=== PATIENT | female | born 1945 | race Caucasian/White ===

== ENCOUNTER 2017-01-02 05:58 | Inpatient (IN) | payer OTHER, MEDICARE ==
[2017-01-02] MEDS ORDERED: ALBUTEROL SO4 2.5/IPRATROPIUM 0.5 INH SOL 3 ML VIAL.NEB. NEB ONE ×4 (06:30→10:10)
--- NOTE | 2017-01-02 06:32 | PDOC ---
History of Present Illness - General Chief Complaint: Respiratory Stated Complaint: COUGH, RESPIRATORY Time Seen by Provider: 01/02/17 06:21 - History of Present Illness Initial Comments: 01/02/17 06:27 CHIEF COMPLAINT: SOB, cough HISTORY OF PRESENT ILLNESS: 71 yo F with hx of HTN, 2 cardiac stents (on Plavix ) sent to ED by PCP with SOB x 2 weeks. Patient reports she has had this "exactly" before and was previously "hospitalized for bronchial pneumonia" after failing outpatient treatment. Patient just completed a course of Levaquin and Medrol dose pack without relief. She has also been using her albuterol inhalers without relief. Her PCP is Dr. Luis Velasquez. She denies any fever but states she does feel chills sometimes. Denies nausea, vomiting diarrhea . No recent travel or sick contacts. PAST MEDICAL HISTORY: Denies past medical history FAMILY HISTORY: Denies SOCIAL HISTORY:Denies tobacco, alcohol, illicit drug use. SURGICAL HISTORY: Denies ALLERGIES: No known drug allergies REVIEW OF SYSTEMS General/Constitutional: "Some chills." Denies fever. Denies weakness, weight change. HEENT: Denies change in vision. Denies ear pain or discharge. Denies sore throat. Cardiovascular: Denies chest pain. Respiratory: Cough, wheezing, SOB x 2 weeks. Denies hemoptysis. Gastrointestinal: Denies nausea, vomiting, diarrhea or constipation. Denies rectal bleeding. Genitourinary: Denies dysuria, frequency, or change in urination. Musculoskeletal: Denies joint or muscle swelling or pain. Denies neck or back pain. Skin and breasts: Denies rash or easy bruising. PHYSICAL EXAM General Appearance: Well-appearing, appropriately dressed. No apparent distress , no intoxication. HEENT: EOMI, PERRLA, normal ENT inspection, normal voice, TMs normal, pharynx normal. No conjunctival pallor. No photophobia, scleral icterus. Neck: Supple. Trachea midline. No tenderness, rigidity, carotid bruit, stridor , lymphadenopathy, or thyromegaly. Respiratory/Chest: Bl expiratory wheezing. No shortness of breath, chest tenderness, respiratory distress, accessory muscle use. No crackles, rales, rhonchi, stridor, wheezing, dullness Cardiovascular: RRR. S1, S2. Gastrointestinal/Abdominal: Normal bowel sounds. Abdomen soft, non-distended. No tenderness or rebound tenderness. No organomegaly, pulsatile mass, guarding , hernia, hepatomegaly, splenomegaly. Lymphatic: No adenopathy, tenderness. Musculoskeletal/Extremities: Normal inspection. FROM of all extremities, normal capillary refill. Pelvis Stable. No CVA tenderness. No tenderness to extremities, pedal edema, swelling, erythema or deformity. Integumentary: Appropriate color, dry, warm. No cyanosis, erythema, jaundice or rash Neurologic: business development analyst II-XII intact. Fully oriented, alert. Appropriate mood/affect. Motor strength 5/5. No appreciable EOM palsy, facial droop or sensory deficit. Past History - Past Medical History Allergies/Adverse Reactions: Allergies Allergy/AdvReac Type Severity Reaction Status Date / Time lactose Allergy Verified 01/02/17 06:24 Penicillins Allergy Verified 01/02/17 06:24 Home Medications: Ambulatory Orders Aspirin [Aspir 81] 81 mg PO BID 10/18/11 Rosuvastatin [Crestor -] 40 mg PO HS 10/18/11 Levothyroxine [Synthroid -] 75 mcg PO DAILY 12/13/11 Lisinopril [Prinivil -] 2.5 mg PO DAILY 06/02/15 Pantoprazole Sodium [Protonix -] 40 mg PO DAILY 06/02/15 Clopidogrel Bisulfate [Plavix -] 75 mg PO DAILY #0 06/03/15 Anemia: No Asthma: No Cancer: Yes (RIGHT BREAST MASTECTOMY, THYROID CA) Cardiac Disorders: Yes (MT, METAL STENT, COATED STENT) CVA: No COPD: No CHF: No Dementia: No Diabetes: No GI Disorders: Yes (PETERSON'S ESOPHAGUS,ABLATION 2X) Disorders: No HTN: No Hypercholesterolemia: Yes Liver Disease: No Seizures: No Thyroid Disease: Yes (LEFT LOBE REMOVED, RIGHT LOBE RADIATION) - Surgical History Abdominal Surgery: No Appendectomy: No Cardiac Surgery: Yes Cholecystectomy: Yes Lung Surgery: No Neurologic Surgery: No Orthopedic Surgery: Yes (LEFT TOTAL KNEE REPLACEMENT) - Psycho/Social/Smoking Cessation Hx Suicidal Ideation: No Smoking History: Never smoked Have you smoked in the past 12 months: No If you are a former smoker, when did you quit?: 7YEARS AGO Information on smoking cessation initiated: No Hx Alcohol Use: No Drug/Substance Use Hx: No Substance Use Type: None Hx Substance Use Treatment: No *Physical Exam - Vital Signs Last Vital Signs Temp Pulse Resp BP Pulse Ox 98.5 F 62 14 135/83 95 01/02/17 06:16 01/02/17 06:16 01/02/17 06:16 01/02/17 06:16 01/02/17 06:16 ED Treatment Course - LABORATORY CBC & Chemistry Diagram: 01/03/17 06:10 01/03/17 06:10 Medical Decision Making - Medical Decision Making 01/02/17 06:34 71 yo F with hx of HTN, 2 cardiac stents (on Plavix) sent to ED by PCP with SOB x 2 weeks. -CBC, CMP, card profile, BNP -EKG -CXR Case discussed in detail with oncoming emergency provider including history, physical exam and ancillary studies. In brief, this patient is being seen in the ED for a chief complaint of: SOB I have completed the initial assessment interview note and have ordered the following labs: CBC, CMP, card profile, BNP I have reviewed the following results: Pending results: Please call the PCP: Ron Plan for disposition as follows: admit Oncoming ALVERTO [place] has assumed care for the patient and will complete the evaluation and treatment. *DC/Admit/Observation/Transfer Diagnosis at time of Disposition: Wheezing, Failure of outpatient treatment, Cough - Referrals
[2017-01-02 06:37] VITALS: BMI 25.9
[2017-01-02] MEDS ORDERED: methylPREDNISolone NA SUCC 125 MG/2 ML VIAL IVPB ONE (06:56)
[2017-01-02 07:05] LABS: BASOPHIL 0.5 % (0-2.0); EOSINOPHIL 7.1 % (0-4.5); MCH 31.5 pg (25.7-33.7); MCHC 34.3 g/dl (32.0-36.0); MEAN CELL VOLUME 91.9 fl (80-96); MEAN PLT VOLUME 8.2 fl (7.5-11.1); NEUTROPHILS 64.5 % (42.8-82.8); PLATELET COUNT 247 K/MM3 (134-434); RDW 14.5 % (11.6-15.6); WHITE BLOOD COUNT 7.8 K/mm3 (4.0-10.0)
--- NOTE | 2017-01-02 07:21 | PDOC ---
*Physical Exam - Vital Signs Last Vital Signs Temp Pulse Resp BP Pulse Ox 98.5 F 62 14 135/83 98 01/02/17 06:16 01/02/17 06:16 01/02/17 06:16 01/02/17 06:16 01/02/17 06:18 ED Treatment Course - LABORATORY CBC & Chemistry Diagram: 01/02/17 06:56 01/02/17 06:56 - Medications Given in the ED: ED Medications Discontinued Medications Generic Name Dose Route Start Last Admin Trade Name Everardo PRN Reason Stop Dose Admin Albuterol/Ipratropium 1 amp 01/02/17 06:30 01/02/17 06:38 Duoneb - NEB 01/02/17 06:31 1 amp ONCE ONE Administration Methylprednisolone Sodium Succinate 125 mg 01/02/17 06:56 01/02/17 06:59 Solu-Medrol - IVPB 01/02/17 06:57 125 mg ONCE ONE Administration Medical Decision Making - Medical Decision Making 01/02/17 07:[address] in by Dr[address] Luis Velasquez for admission secondary to unresolved coughing and wheezing despite being on Levaquin. Patient was given steroids here in the ER including duo nebs. Patient awaiting chest x-ray. Admission will be placed once x-ray is reviewed. 01/02/17 09:14 Chest xray -. Pt with continual coughing and intermittent wheezing. pt ordered for robitussin ac and duoneb. Case discussed with Dr. Christiano Velasquez and states admitted to [facility] inpatient. *DC/Admit/Observation/Transfer Diagnosis at time of Disposition: Wheezing, Failure of outpatient treatment, Cough - Discharge Dispostion Admit: Yes - Referrals Referrals: Luis Velasquez MD [Primary Care Provider] - - Patient Instructions - Post Discharge Activity
[2017-01-02 07:39] LABS: INR 0.99 (0.82-1.09); PROTHROMBIN TIME (PATIENT) 10.9 SEC (9.98-11.88)
[2017-01-02 07:51] LABS: ALBUMIN 3.3 g/dl (3.4-5.0); ALK PHOS 72 U/L (45-117); ANION GAP 8 (8-16); BILIRUBIN,TOTAL 0.3 mg/dL (0.2-1.0); CALCIUM 8.8 mg/dL (8.5-10.1); CO2 27 mmol/L (21-32); CREATININE 0.9 mg/dL (0.55-1.02); GLUCOSE,RANDOM 85 mg/dL (74-106); SGOT/AST 18 U/L (15-37); SGPT/ALT 16 U/L (12-78); TOT PROT 5.9 g/dl (6.4-8.2)
[2017-01-02] MEDS ORDERED: guaiFENesin/CODEINE 10 ML UNIT-DOSE CUPS PO ONE (08:58)
[2017-01-02] MEDS ORDERED: guaiFENesin/D-METHORPHAN HB 10 ML UNIT-DOSE CUPS ONE (09:00)
[2017-01-02 11:01] LABS: TROPONIN I < 0.02 ng/ml (0.00-0.05)
[2017-01-02] MEDS ORDERED: ACETAMINOPHEN 325 MG TABLET (FP) PO PRN (12:30)
--- NOTE | 2017-01-02 12:34 | HP ---
Admitting History and Physical - Primary Care Physician PCP: Luis Velasquez - Admission Chief Complaint: cough/sob/ wheezing History of Present Illness: 71 yo F with hx of HTN, 2 cardiac stents (on Plavix) sent to ED by PCP with SOB x 2 weeks. Patient reports she has had this "exactly" before and was previously "hospitalized for bronchial pneumonia" after failing outpatient treatment. Patient just completed a course of Levaquin and Medrol dose pack without relief. She has also been using her albuterol inhalers without relief. She denies any fever but states she does feel chills sometimes. Denies nausea , vomiting diarrhea . No recent travel or sick contacts. pt recently finished out pt treatment with abx/ prednisone pt found in [facility] [place] Being admitted to floor chart reviewed case discussed with er physician earlier pt seen in er. coughing/ wheezing- better with steroids. denies cp. no abd pain. no headche/ dizziness. denies u/b trouble History Source: Patient Limitations to Obtaining History: No Limitations - Past Medical History Cardiovascular: Yes: CAD, CHF, HTN, Hyperlipdemia, [place] Pulmonary: Yes: COPD, Pneumonia Gastrointestinal: Yes: GERD Endocrine: Yes: Hypothyroidism - Past Surgical History Past Surgical History: Yes: Joint Replacement, Mastectomy, Stent - Smoking History Smoking history: Former smoker Have you smoked in the past 12 months: No If you are a former smoker, when did you quit?: 7YEARS AGO - Alcohol/Substance Use Hx Alcohol Use: No - Social History Usual Living Arrangement: Yes: Alone History of Recent Travel: No Home Medications - Allergies Allergies/Adverse Reactions: Allergies Allergy/AdvReac Type Severity Reaction Status Date / Time lactose Allergy Verified 01/02/17 06:24 Penicillins Allergy Verified 01/02/17 06:24 - Home Medications Home Medications: Ambulatory Orders Aspirin [Aspir 81] 81 mg PO BID 10/18/11 Rosuvastatin [Crestor -] 40 mg PO HS 10/18/11 Levothyroxine [Synthroid -] 75 mcg PO SUWETHFRSA 12/13/11 Lisinopril [Prinivil -] 2.5 mg PO DAILY 06/02/15 Pantoprazole Sodium [Protonix -] 40 mg PO DAILY 06/02/15 Clopidogrel Bisulfate [Plavix -] 75 mg PO DAILY #0 06/03/15 Family Disease History - Family Disease History Family History: Unremarkable Review of Systems Unable to obtain ROS, reason: see [facility] Physical Examination Vital Signs: Vital Signs Temperature 98.5 F 01/02/17 06:16 Pulse Rate 73 01/02/17 11:35 Respiratory Rate 14 01/02/17 11:35 Blood Pressure 112/71 01/02/17 11:35 O2 Sat by Pulse Oximetry (%) 94 L 01/02/17 11:35 Constitutional: Yes: No Distress, Calm Eyes: Yes: Conjunctiva Clear HENT: Yes: WNL Neck: Yes: Supple Cardiovascular: Yes: Regular Rate and Rhythm Respiratory: Yes: Wheezes Gastrointestinal: Yes: Normal Bowel Sounds, Soft Edema: No Neurological: Yes: Alert Psychiatric: Yes: Alert Imaging - Results Chest X-ray: Report Reviewed Problem List - Problems (1) COPD exacerbation Assessment/Plan: iv steroids nebulizer treatment Code(s): J44.1 - CHRONIC OBSTRUCTIVE PULMONARY DISEASE W (ACUTE) EXACERBATION (2) Failure of outpatient treatment Code(s): Z78.9 - OTHER SPECIFIED HEALTH STATUS (3) Wheezing Code(s): R06.2 - WHEEZING (4) CAD (coronary artery disease) Assessment/Plan: no active issues Code(s): I25.10 - ATHSCL HEART DISEASE OF [place] CORONARY ARTERY W/O ANG PCTRS Qualifiers: Coronary Disease-Associated Artery/Lesion type: [place] artery [place] vs. transplanted heart: [place] heart Associated angina: without angina Qualified Code(s): I25.10 - Atherosclerotic heart disease of [place] coronary artery without angina pectoris (5) History of percutaneous angioplasty Assessment/Plan: no active issues continue present care Code(s): Z98.61 - CORONARY ANGIOPLASTY STATUS (6) Hypercholesterolemia Code(s): E78.0 - PURE HYPERCHOLESTEROLEMIA * DO NOT USE * (7) Hypertension Assessment/Plan: monitor Code(s): I10 - ESSENTIAL (PRIMARY) HYPERTENSION Qualifiers: Hypertension type: essential hypertension Qualified Code(s): I10 - Essential (primary) hypertension (8) Hypothyroid Assessment/Plan: on synthroid Code(s): E03.9 - HYPOTHYROIDISM, UNSPECIFIED
[2017-01-02] MEDS ORDERED: ENOXAPARIN NA (PORCINE) 40 MG/0.4 ML DISP.SYRIN SQ ONE (13:22)
[2017-01-02] MEDS ORDERED: CLOPIDOGREL BISULFATE 75 MG TABLET (FP) ONE (13:22)
[2017-01-02] MEDS: ENOXAPARIN NA (PORCINE) 40 MG/0.4 ML DISP.SYRIN SQ SCH (13:31)
[2017-01-02] MEDS: CLOPIDOGREL BISULFATE 75 MG TABLET (FP) PO SCH (13:31)
[2017-01-02] MEDS: methylPREDNISolone NA SUCC 125 MG/2 ML VIAL IVPB SCH ×2 (14:53→21:03)
[2017-01-02] MEDS: ALBUTEROL SO4 0.083% IH SOL 2.5 MG/3 ML VIAL.NEB. NEB PRN ×3 (17:30→22:57)
[2017-01-02] MEDS ORDERED: PT OWN MED DRAWER 7, Y5N ONE ×2 (21:00→22:01)
[2017-01-02] MEDS: ASPIRIN COATED 81 MG TABLET.EC PO SCH (21:45)
[2017-01-02] MEDS ORDERED: ROSUVASTATIN CA 40 MG TABLET PO SCH (22:00)
[2017-01-03] MEDS: methylPREDNISolone NA SUCC 125 MG/2 ML VIAL IVPB SCH ×4 (03:21→21:42)
[2017-01-03] MEDS: ALBUTEROL SO4 0.083% IH SOL 2.5 MG/3 ML VIAL.NEB. NEB PRN (07:07)
[2017-01-03 08:05] LABS: BASOPHIL 0.1 % (0-2.0); EOSINOPHIL 0.1 % (0-4.5); MCH 31.1 pg (25.7-33.7); MCHC 33.8 g/dl (32.0-36.0); MEAN CELL VOLUME 92.1 fl (80-96); MEAN PLT VOLUME 8.6 fl (7.5-11.1); NEUTROPHILS 92.1 % (42.8-82.8); PLATELET COUNT 273 K/MM3 (134-434); RDW 14.4 % (11.6-15.6)
[2017-01-03 08:27] LABS: ALBUMIN 3.2 g/dl (3.4-5.0); ANION GAP 9 (8-16); CALCIUM 8.9 mg/dL (8.5-10.1); CO2 24 mmol/L (21-32); GLUCOSE,RANDOM 130 mg/dL (74-106); SGOT/AST 17 U/L (15-37); SGPT/ALT 17 U/L (12-78)
[2017-01-03 08:38] LABS: ALK PHOS 60 U/L (45-117); BILIRUBIN,TOTAL 0.4 mg/dL (0.2-1.0); THYROID STIMULATING HORMONE 0.22 uIU/ml (0.358-3.74); TOT PROT 6.1 g/dl (6.4-8.2)
[2017-01-03] MEDS ORDERED: PT OWN MED DRAWER 7, Y5N ONE (09:01)
[2017-01-03] MEDS: ASPIRIN COATED 81 MG TABLET.EC PO SCH ×2 (09:10→21:44)
[2017-01-03] MEDS: CLOPIDOGREL BISULFATE 75 MG TABLET (FP) PO SCH (09:11)
[2017-01-03] MEDS: PANTOPRAZOLE 40 MG TABLET (FP) PO SCH (09:12)
[2017-01-03] MEDS: LISINOPRIL 5 MG TABLET (FP) PO SCH (09:12)
[2017-01-03] MEDS: ENOXAPARIN NA (PORCINE) 40 MG/0.4 ML DISP.SYRIN SQ SCH (09:14)
--- NOTE | 2017-01-03 09:45 | PN ---
Progress Note (short form) - Note Progress Note: pt seen/ examined. little better coughing denies chest pain. Vital Signs Temp 99 F 01/03/17 06:00 Pulse 72 01/03/17 06:00 Resp 20 01/03/17 06:00 BP 102/56 01/03/17 06:00 Pulse Ox 94 L 01/02/17 22:00 Intake & Output 01/02/17 01/02/17 01/03/17 11:59 23:59 11:59 Intake Total 100 350 Balance 100 350 Weight 142 lb Intake: IVPB 100 50 Oral 300 Other: Voiding Method Toilet Toilet # Unmeasured Voids Void 3 Height 5 ft 2 in Body Mass Index (BMI) 25.9 Weight Measurement Method Stated by Patient Weight Measurement Method Standing Scale Active Medications Acetaminophen (Tylenol -) 650 mg PO Q4H PRN PRN Reason: FEVER OR PAIN Albuterol/Ipratropium (Duoneb -) 1 amp NEB Q6H [facility] Aspirin (Ecotrin -) 81 mg PO BID [facility] Last Admin: 01/03/17 09:10 Dose: 81 mg Clopidogrel Bisulfate (Plavix -) 75 mg PO DAILY [facility] Last Admin: 01/03/17 09:11 Dose: 75 mg Enoxaparin Sodium (Lovenox -) 40 mg SQ DAILY [facility] Last Admin: 01/03/17 09:14 Dose: 40 mg Guaifenesin/Codeine Phosphate (Robitussin Ac -) 10 ml PO Q8H PRN PRN Reason: COUGH Levothyroxine Sodium (Synthroid -) 75 mcg PO SuWeThFrSa@0700 [facility] Lisinopril (Prinivil) 2.5 mg PO DAILY [facility] Last Admin: 01/03/17 09:12 Dose: Not Given Methylprednisolone Sodium Succinate (Solu-Medrol -) 60 mg IVPB Q6H-IV [facility] Last Admin: 01/03/17 09:12 Dose: 60 mg Pantoprazole Sodium (Protonix -) 40 mg PO DAILY [facility] Last Admin: 01/03/17 09:12 Dose: 40 mg Rosuvastatin Calcium (Crestor -) 40 mg PO HS [facility] CBC, BMP 01/03/17 06:10 01/03/17 06:10 Physical Examination Constitutional: Yes: No Distress, Calm Eyes: Yes: Conjunctiva Clear HENT: Yes: WNL Neck: Yes: Supple Cardiovascular: Yes: Regular Rate and Rhythm Respiratory: Yes: Wheezes--better--expiratory Gastrointestinal: Yes: Normal Bowel Sounds, Soft Edema: No Neurological: Yes: Alert Psychiatric: Yes: Alert Imaging - Results Chest X-ray: Report Reviewed Problem List - Problems (1) COPD exacerbation Assessment/Plan: iv steroids nebulizer treatment add robitussin with ac for cough Code(s): J44.1 - CHRONIC OBSTRUCTIVE PULMONARY DISEASE W (ACUTE) EXACERBATION (2) Failure of outpatient treatment Code(s): Z78.9 - OTHER SPECIFIED HEALTH STATUS (3) Wheezing Code(s): R06.2 - WHEEZING (4) CAD (coronary artery disease) Assessment/Plan: no active issues Code(s): I25.10 - ATHSCL HEART DISEASE OF [place] CORONARY ARTERY W/O ANG PCTRS Qualifiers: Coronary Disease-Associated Artery/Lesion type: [place] artery [place] vs. transplanted heart: [place] heart Associated angina: without angina Qualified Code(s): I25.10 - Atherosclerotic heart disease of [place] coronary artery without angina pectoris (5) History of percutaneous angioplasty Assessment/Plan: no active issues continue present care Code(s): Z98.61 - CORONARY ANGIOPLASTY STATUS (6) Hypercholesterolemia Code(s): E78.0 - PURE HYPERCHOLESTEROLEMIA * DO NOT USE * (7) Hypertension Assessment/Plan: monitor Code(s): I10 - ESSENTIAL (PRIMARY) HYPERTENSION Qualifiers: Hypertension type: essential hypertension Qualified Code(s): I10 - Essential (primary) hypertension (8) Hypothyroid Assessment/Plan: on synthroid tsh is slightly low but pt is on steroids -- Code(s): E03.9 - HYPOTHYROIDISM, UNSPECIFIED Problem List - Problems (1) COPD exacerbation Code(s): J44.1 - CHRONIC OBSTRUCTIVE PULMONARY DISEASE W (ACUTE) EXACERBATION (2) Failure of outpatient treatment Code(s): Z78.9 - OTHER SPECIFIED HEALTH STATUS (3) Wheezing Code(s): R06.2 - WHEEZING (4) CAD (coronary artery disease) Code(s): I25.10 - ATHSCL HEART DISEASE OF [place] CORONARY ARTERY W/O ANG PCTRS Qualifiers: Coronary Disease-Associated Artery/Lesion type: [place] artery [place] vs. transplanted heart: [place] heart Associated angina: without angina Qualified Code(s): I25.10 - Atherosclerotic heart disease of [place] coronary artery without angina pectoris (5) History of percutaneous angioplasty Code(s): Z98.61 - CORONARY ANGIOPLASTY STATUS (6) Hypercholesterolemia Code(s): E78.0 - PURE HYPERCHOLESTEROLEMIA * DO NOT USE * (7) Hypertension Code(s): I10 - ESSENTIAL (PRIMARY) HYPERTENSION Qualifiers: Hypertension type: essential hypertension Qualified Code(s): I10 - Essential (primary) hypertension (8) Hypothyroid Code(s): E03.9 - HYPOTHYROIDISM, UNSPECIFIED
--- NOTE | 2017-01-03 10:41 | EKG ---
Test Reason : Blood Pressure : / mmHG Vent. Rate : 057 BPM Atrial Rate : 057 BPM P-R Int : 148 ms QRS Dur : 122 ms QT Int : 452 ms P-R-T Axes : 047 -64 012 degrees QTc Int : 439 ms SINUS BRADYCARDIA RIGHT BUNDLE BRANCH BLOCK LEFT ANTERIOR FASCICULAR BLOCK BIFASCICULAR BLOCK POSSIBLE LATERAL INFARCT (CITED ON OR BEFORE 16-JAN-2011) ABNORMAL ECG WHEN COMPARED WITH ECG OF 18-NOV-2015 06:14, COMPARED TO EKG NO SIGNIFICANT CHANGE IS FOUND Confirmed by RHIANNA PAZ MD ([id number]) on 01/03/2017 10:40:43 AM Referred By: Confirmed By:RHIANNA PAZ MD
[2017-01-03] MEDS: guaiFENesin/CODEINE 10 ML UNIT-DOSE CUPS PO PRN ×2 (10:43→20:31)
[2017-01-03] MEDS: ALBUTEROL SO4 2.5/IPRATROPIUM 0.5 INH SOL 3 ML VIAL.NEB. NEB SCH ×2 (12:00→18:49)
[2017-01-03] MEDS ORDERED: ROSUVASTATIN CA 10 MG TABLET (FP) ONE (21:38)
[2017-01-03] MEDS: ROSUVASTATIN CA 20 MG TABLET (FP) PO SCH (21:43)
[2017-01-04] MEDS: methylPREDNISolone NA SUCC 125 MG/2 ML VIAL IVPB SCH ×2 (02:15→10:39)
[2017-01-04] MEDS: guaiFENesin/CODEINE 10 ML UNIT-DOSE CUPS PO PRN ×3 (04:17→22:56)
[2017-01-04] MEDS: ALBUTEROL SO4 2.5/IPRATROPIUM 0.5 INH SOL 3 ML VIAL.NEB. NEB SCH ×5 (06:00→23:34)
[2017-01-04] MEDS: LEVOTHYROXINE NA 75 MCG TABLET (FP) PO SCH (06:41)
[2017-01-04] MEDS: SIMETHICONE 80 MG TAB.CHEW (FP) PO PRN (10:38)
[2017-01-04] MEDS: ENOXAPARIN NA (PORCINE) 40 MG/0.4 ML DISP.SYRIN SQ SCH (10:39)
[2017-01-04] MEDS: ASPIRIN COATED 81 MG TABLET.EC PO SCH ×2 (10:39→21:01)
[2017-01-04] MEDS: LISINOPRIL 5 MG TABLET (FP) PO SCH (10:39)
[2017-01-04] MEDS: CLOPIDOGREL BISULFATE 75 MG TABLET (FP) PO SCH (10:39)
[2017-01-04] MEDS: PANTOPRAZOLE 40 MG TABLET (FP) PO SCH (10:40)
--- NOTE | 2017-01-04 12:22 | PN ---
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 Last Admin: 01/04/17 11:01 Dose: 1 amp Aspirin (Ecotrin -) [address] [facility] Last Admin: 01/04/17 10:39 Dose: 81 mg Clopidogrel Bisulfate (Plavix -) [address] [facility] Last Admin: 01/04/17 10:39 Dose: 75 mg Enoxaparin Sodium (Lovenox -) [address] [facility] Last Admin: 01/04/17 10:39 Dose: 40 mg Guaifenesin/Codeine Phosphate (Robitussin Ac -) 10 ml PO Q8H PRN PRN Reason: COUGH Last Admin: 01/04/17 04:17 Dose: 10 ml Levothyroxine Sodium (Synthroid -) 75 mcg PO DAILY@0700 [facility] Last Admin: 01/04/17 06:41 Dose: 75 mcg Lisinopril (Prinivil) 2.[address] [facility] Last Admin: 01/04/17 10:39 Dose: 2.5 mg Methylprednisolone Sodium Succinate (Solu-Medrol -) 40 mg IVPB Q6H-IV [facility] Pantoprazole Sodium (Protonix -) [address] [facility] Last Admin: 01/04/17 10:40 Dose: 40 mg Rosuvastatin Calcium (Crestor -) [address] [facility] Last Admin: 01/03/17 21:43 Dose: 40 mg Simethicone (Mylicon -) 80 mg PO Q8H PRN PRN Reason: HEARTBURN Last Admin: 01/04/17 10:38 Dose: 80 mg - Objective Vital Signs: Vital Signs Temperature 98.7 F 01/04/17 06:00 Pulse Rate 68 01/04/17 06:00 Respiratory Rate 22 01/04/17 06:00 Blood Pressure 100/58 01/04/17 06:00 O2 Sat by Pulse Oximetry (%) 94 L 01/02/17 22:00 Constitutional: Yes: No Distress, Calm Cardiovascular: Yes: Regular Rate and Rhythm Respiratory: Yes: Diminished. No: Rales, Rhonchi Gastrointestinal: Yes: Normal Bowel Sounds, Soft. No: Tenderness Edema: No Labs: CBC, BMP 01/03/17 06:10 01/03/17 06:10 INR, PTT INR 0.99 (0.82-1.09) 01/02/17 06:59 Problem List - Problems (1) Cough Code(s): R05 - COUGH (2) Failure of outpatient treatment Code(s): Z78.9 - OTHER SPECIFIED HEALTH STATUS (3) Wheezing Code(s): R06.2 - WHEEZING (4) Bronchitis Code(s): J40 - BRONCHITIS, NOT SPECIFIED ACUTE OR CHRONIC (5) COPD exacerbation Code(s): J44.1 - CHRONIC OBSTRUCTIVE PULMONARY DISEASE W (ACUTE) EXACERBATION Assessment/Plan PLAN IV solumedrol-- taper Pulmonary eval Nebs as needed continue with meds OOB daily
[2017-01-04] MEDS: methylPREDNISolone NA SUCC 40 MG/1 ML VIAL IVPB SCH ×2 (14:56→21:01)
--- NOTE | 2017-01-04 14:58 | CON.PULM ---
Consult Consult Specialty:: PULM/CCM Referred by:: MARILOU Reason for Consultation:: SOB - History of Present Illness Chief Complaint: SOB / cough History of Present Illness: 71 F, former smoker and apparent significant second hand smoke exposure. Has been undergoing treatment and monitoring for vocal cord nodules and atypical cells. She has been undergoing laser treatments and was told that currently there is no evidence of atypical cells. Admitted due to persistent SOB and cough despite outpatient therapy with steroids and Levaquin. No travel history or sick contacts. No fever or chills. She does report a change in the character of her voice and occasional discomfort in her throat. She expressed some concern about being exposed during 03/07 as her office was apparently in close vicinity. - History Source History Provided By: Patient Limitations to Obtaining History: No Limitations - Past Medical History Cardio/Vascular: Yes: CAD, CHF, HTN, Hyperlipdemia, [place] Pulmonary: Yes: COPD, Pneumonia Gastrointestinal: Yes: GERD Endocrine: Yes: Hypothyroidism Additional Medical History: Munoz's esophagus - Past Surgical History Past Surgical History: Yes: Joint Replacement, Mastectomy, Stent - Alcohol/Substance Use Hx Alcohol Use: No - Smoking History Smoking history: Former smoker Have you smoked in the past 12 months: No If you are a former smoker, when did you quit?: 7YEARS AGO - Social History History of Recent Travel: No Home Medications - Allergies Allergies/Adverse Reactions: Allergies Allergy/AdvReac Type Severity Reaction Status Date / Time lactose Allergy Verified 01/02/17 06:24 Penicillins Allergy Verified 01/02/17 06:24 - Home Medications Home Medications: Ambulatory Orders Aspirin [Aspir 81] 81 mg PO BID 10/18/11 Rosuvastatin [Crestor -] 40 mg PO HS 10/18/11 Levothyroxine [Synthroid -] 75 mcg PO DAILY 12/13/11 Lisinopril [Prinivil -] 2.5 mg PO DAILY 06/02/15 Pantoprazole Sodium [Protonix -] 40 mg PO DAILY 06/02/15 Clopidogrel Bisulfate [Plavix -] 75 mg PO DAILY #0 06/03/15 Review of Systems - Review of Systems Constitutional: reports: Malaise. denies: Chills, Fever, Loss of Appetite, Night Sweats, Unintentional Wgt. Loss Eyes: reports: No Symptoms HENT: reports: Nasal Congestion, Throat Pain. denies: Difficult Swallowing, Ear Discharge, Ear Pain, Gingival Bleeding, Hearing Loss, Toothache, Ringing in Ears Neck: reports: No Symptoms Cardiovascular: reports: Shortness of Breath. denies: Chest Pain, Edema, Palpitations Respiratory: reports: Cough, SOB, SOB on Exertion, Wheezing. denies: Hemoptysis , Snoring Gastrointestinal: reports: No Symptoms Genitourinary: reports: No Symptoms Breasts: reports: No Symptoms Reported Musculoskeletal: reports: No Symptoms Integumentary: reports: No Symptoms Neurological: reports: No Symptoms Endocrine: reports: No Symptoms Hematology/Lymphatic: reports: No Symptoms Psychiatric: reports: No Symptoms Physical Exam Vital Sings: Vital Signs Temperature 98.7 F 01/04/17 06:00 Pulse Rate 68 01/04/17 06:00 Respiratory Rate 22 01/04/17 06:00 Blood Pressure 100/58 01/04/17 06:00 O2 Sat by Pulse Oximetry (%) 94 L 01/02/17 22:00 Constitutional: Yes: No Distress, Thin Eyes: Yes: Conjunctiva Clear, EOM Intact HENT: Yes: Atraumatic, Normocephalic Neck: Yes: Supple, Trachea Midline, Tenderness. No: Lymphadenopathy, Thyromegaly Cardiovascular: Yes: Regular Rate and Rhythm Respiratory: Yes: Cough, Diminished, Rhonchi, Wheezes. No: Accessory Muscle Use , Rales, Stridor, Tachypnea ...Inspection: Yes: WNL ...Clubbing: No Gastrointestinal: Yes: Normal Bowel Sounds, Soft Renal/: Yes: WNL Musculoskeletal: Yes: WNL Extremities: Yes: WNL Edema: No Peripheral Pulses WNL: Yes Integumentary: Yes: WNL Neurological: Yes: WNL, Alert, Oriented ...Motor Strength: WNL Psychiatric: Yes: WNL, Alert, Oriented Labs: CBC, BMP 01/03/17 06:10 01/03/17 06:10 Imaging - Results Chest X-ray: Report Reviewed, Image Reviewed Problem List - Problems (1) Cough Code(s): R05 - COUGH (2) Failure of outpatient treatment Code(s): Z78.9 - OTHER SPECIFIED HEALTH STATUS (3) Wheezing Code(s): R06.2 - WHEEZING (4) Bronchitis Code(s): J40 - BRONCHITIS, NOT SPECIFIED ACUTE OR CHRONIC (5) CAD (coronary artery disease) Code(s): I25.10 - ATHSCL HEART DISEASE OF [place] CORONARY ARTERY W/O ANG PCTRS Qualifiers: Coronary Disease-Associated Artery/Lesion type: [place] artery [place] vs. transplanted heart: [place] heart Associated angina: without angina Qualified Code(s): I25.10 - Atherosclerotic heart disease of [place] coronary artery without angina pectoris (6) COPD exacerbation Code(s): J44.1 - CHRONIC OBSTRUCTIVE PULMONARY DISEASE W (ACUTE) EXACERBATION (7) History of percutaneous angioplasty Code(s): Z98.61 - CORONARY ANGIOPLASTY STATUS (8) Hypercholesterolemia Code(s): E78.0 - PURE HYPERCHOLESTEROLEMIA * DO NOT USE * (9) Hypertension Code(s): I10 - ESSENTIAL (PRIMARY) HYPERTENSION Qualifiers: Hypertension type: essential hypertension Qualified Code(s): I10 - Essential (primary) hypertension (10) Hypothyroid Code(s): E03.9 - HYPOTHYROIDISM, UNSPECIFIED Assessment/Plan Medrol IV BD TX O2 as needed Would monitor off ABX for now VTE prophylaxis Will need baseline PFTs once stable after discharge (has not had before) I advised follow up with her ENT surgeon to further assess her vocal cord anatomy and function No smoking encouraged Do not see a clear relationship between her symptoms and 03/07 exposure at this time. Will follow Thank you. Dr Lerner
[2017-01-04] MEDS ORDERED: ROSUVASTATIN CA 10 MG TABLET (FP) ONE (20:58)
[2017-01-04] MEDS: ROSUVASTATIN CA 20 MG TABLET (FP) PO SCH (21:01)
[2017-01-05] MEDS: methylPREDNISolone NA SUCC 40 MG/1 ML VIAL IVPB SCH ×3 (04:00→18:07)
[2017-01-05] MEDS: ALBUTEROL SO4 2.5/IPRATROPIUM 0.5 INH SOL 3 ML VIAL.NEB. NEB SCH ×3 (06:06→17:39)
[2017-01-05] MEDS: LEVOTHYROXINE NA 75 MCG TABLET (FP) PO SCH (06:11)
[2017-01-05] MEDS: guaiFENesin/CODEINE 10 ML UNIT-DOSE CUPS PO PRN ×2 (06:12→15:59)
[2017-01-05] MEDS ORDERED: LEVOTHYROXINE NA 75 MCG TABLET (FP) PO SCH (07:00)
[2017-01-05] MEDS: PANTOPRAZOLE 40 MG TABLET (FP) PO SCH (10:10)
[2017-01-05] MEDS: CLOPIDOGREL BISULFATE 75 MG TABLET (FP) PO SCH (10:10)
[2017-01-05] MEDS: ASPIRIN COATED 81 MG TABLET.EC PO SCH ×2 (10:10→21:39)
[2017-01-05] MEDS: ENOXAPARIN NA (PORCINE) 40 MG/0.4 ML DISP.SYRIN SQ SCH (10:10)
[2017-01-05] MEDS: LISINOPRIL 5 MG TABLET (FP) PO SCH (10:11)
--- NOTE | 2017-01-05 11:38 | PN ---
Progress Note, Physician Chief Complaint: feels better no SOB she is walking without feeling SOB wants to go home - Current Medication List Current Medications: Active Medications Acetaminophen (Tylenol -) 650 mg PO Q4H PRN PRN Reason: FEVER OR PAIN Albuterol/Ipratropium (Duoneb -) 1 amp NEB QIDR [facility] Last Admin: 01/05/17 06:06 Dose: 1 amp Aspirin (Ecotrin -) 81 mg PO BID [facility] Last Admin: 01/05/17 10:10 Dose: 81 mg Clopidogrel Bisulfate (Plavix -) 75 mg PO DAILY [facility] Last Admin: 01/05/17 10:10 Dose: 75 mg Enoxaparin Sodium (Lovenox -) 40 mg SQ DAILY [facility] Last Admin: 01/05/17 10:10 Dose: 40 mg Guaifenesin/Codeine Phosphate (Robitussin Ac -) 10 ml PO Q8H PRN PRN Reason: COUGH Last Admin: 01/05/17 06:12 Dose: 10 ml Levothyroxine Sodium (Synthroid -) 75 mcg PO DAILY@0700 [facility] Last Admin: 01/05/17 06:11 Dose: 75 mcg Lisinopril (Prinivil) 2.5 mg PO DAILY [facility] Last Admin: 01/05/17 10:11 Dose: Not Given Methylprednisolone Sodium Succinate (Solu-Medrol -) 40 mg IVPB Q6H-IV [facility] Last Admin: 01/05/17 10:10 Dose: 40 mg Pantoprazole Sodium (Protonix -) 40 mg PO DAILY [facility] Last Admin: 01/05/17 10:10 Dose: 40 mg Rosuvastatin Calcium (Crestor -) 40 mg PO HS [facility] Last Admin: 01/04/17 21:01 Dose: 40 mg Simethicone (Mylicon -) 80 mg PO Q8H PRN PRN Reason: HEARTBURN Last Admin: 01/04/17 10:38 Dose: 80 mg - Objective Vital Signs: Vital Signs Temperature 98.7 F 01/05/17 06:00 Pulse Rate 67 01/05/17 06:00 Respiratory Rate 20 01/05/17 06:00 Blood Pressure 107/57 01/05/17 06:00 O2 Sat by Pulse Oximetry (%) 97 01/04/17 22:00 Constitutional: Yes: No Distress, Calm Cardiovascular: Yes: Regular Rate and Rhythm Respiratory: Yes: Diminished. No: Rhonchi Gastrointestinal: Yes: Normal Bowel Sounds, Soft. No: Distention, Tenderness Edema: No Labs: CBC, BMP 01/03/17 06:10 01/03/17 06:10 INR, PTT INR 0.99 (0.82-1.09) 01/02/17 06:59 Problem List - Problems (1) Cough Code(s): R05 - COUGH (2) Failure of outpatient treatment Code(s): Z78.9 - OTHER SPECIFIED HEALTH STATUS (3) Bronchitis Code(s): J40 - BRONCHITIS, NOT SPECIFIED ACUTE OR CHRONIC (4) CAD (coronary artery disease) Code(s): I25.10 - ATHSCL HEART DISEASE OF [place] CORONARY ARTERY W/O ANG PCTRS Qualifiers: Coronary Disease-Associated Artery/Lesion type: [place] artery [place] vs. transplanted heart: [place] heart Associated angina: without angina Qualified Code(s): I25.10 - Atherosclerotic heart disease of [place] coronary artery without angina pectoris (5) COPD exacerbation Code(s): J44.1 - CHRONIC OBSTRUCTIVE PULMONARY DISEASE W (ACUTE) EXACERBATION Assessment/Plan PLAN IV solumedrol-- taper Pulmonary eval appreciated Nebs as needed continue with meds OOB daily dc planning
--- NOTE | 2017-01-05 16:10 | PN ---
Progress Note, Physician History of Present Illness: PULMONARY ALERT,FEELING BETTER,LESS COUGH. - Current Medication List Current Medications: Active Medications Acetaminophen (Tylenol -) 650 mg PO Q4H PRN PRN Reason: FEVER OR PAIN Albuterol/Ipratropium (Duoneb -) 1 amp NEB QIDR [facility] Last Admin: 01/05/17 11:30 Dose: 1 amp Aspirin (Ecotrin -) 81 mg PO BID [facility] Last Admin: 01/05/17 10:10 Dose: 81 mg Clopidogrel Bisulfate (Plavix -) 75 mg PO DAILY [facility] Last Admin: 01/05/17 10:10 Dose: 75 mg Enoxaparin Sodium (Lovenox -) 40 mg SQ DAILY [facility] Last Admin: 01/05/17 10:10 Dose: 40 mg Guaifenesin/Codeine Phosphate (Robitussin Ac -) 10 ml PO Q8H PRN PRN Reason: COUGH Last Admin: 01/05/17 15:59 Dose: 10 ml Levothyroxine Sodium (Synthroid -) 75 mcg PO DAILY@0700 [facility] Last Admin: 01/05/17 06:11 Dose: 75 mcg Lisinopril (Prinivil) 2.5 mg PO DAILY [facility] Last Admin: 01/05/17 10:11 Dose: Not Given Methylprednisolone Sodium Succinate (Solu-Medrol -) 40 mg IVPB Q8H-IV [facility] Pantoprazole Sodium (Protonix -) 40 mg PO DAILY [facility] Last Admin: 01/05/17 10:10 Dose: 40 mg Rosuvastatin Calcium (Crestor -) 40 mg PO HS [facility] Last Admin: 01/04/17 21:01 Dose: 40 mg Simethicone (Mylicon -) 80 mg PO Q8H PRN PRN Reason: HEARTBURN Last Admin: 01/04/17 10:38 Dose: 80 mg - Objective Vital Signs: Vital Signs Temperature 98.5 F 01/05/17 15:25 Pulse Rate 71 01/05/17 15:25 Respiratory Rate 20 01/05/17 15:25 Blood Pressure 107/57 01/05/17 15:25 O2 Sat by Pulse Oximetry (%) 97 01/05/17 09:00 Constitutional: Yes: Well Nourished, Calm Eyes: Yes: WNL HENT: Yes: WNL Neck: Yes: Supple, Other (- STRIDOR) Cardiovascular: Yes: Regular Rate and Rhythm, S1, S2 Respiratory: Yes: Wheezes (SCATTERED EMMY WHEEZES) Gastrointestinal: Yes: Normal Bowel Sounds, Soft Extremities: Yes: WNL Edema: No Labs: CBC, BMP Assessment/Plan Problem List - Problems (1) Cough Code(s): R05 - COUGH (2) Failure of outpatient treatment Code(s): Z78.9 - OTHER SPECIFIED HEALTH STATUS (3) Wheezing Code(s): R06.2 - WHEEZING (4) Bronchitis Code(s): J40 - BRONCHITIS, NOT SPECIFIED ACUTE OR CHRONIC (5) CAD (coronary artery disease) Code(s): I25.10 - ATHSCL HEART DISEASE OF [place] CORONARY ARTERY W/O ANG PCTRS Qualifiers: Coronary Disease-Associated Artery/Lesion type: [place] artery [place] vs. transplanted heart: [place] heart Associated angina: without angina Qualified Code(s): I25.10 - Atherosclerotic heart disease of [place] coronary artery without angina pectoris (6) COPD exacerbation Code(s): J44.1 - CHRONIC OBSTRUCTIVE PULMONARY DISEASE W (ACUTE) EXACERBATION (7) History of percutaneous angioplasty Code(s): Z98.61 - CORONARY ANGIOPLASTY STATUS (8) Hypercholesterolemia Code(s): E78.0 - PURE HYPERCHOLESTEROLEMIA * DO NOT USE * (9) Hypertension Code(s): I10 - ESSENTIAL (PRIMARY) HYPERTENSION Qualifiers: Hypertension type: essential hypertension Qualified Code(s): I10 - Essential (primary) hypertension (10) Hypothyroid Code(s): E03.9 - HYPOTHYROIDISM, UNSPECIFIED Assessment/Plan Cont Medrol IV BD TX O2 as needed VTE prophylaxis Will need baseline PFTs once stable after discharge (has not had before) follow up with her ENT surgeon to further assess her vocal cord anatomy and function No smoking encouraged DR BRUCE
[2017-01-05] MEDS: SIMETHICONE 80 MG TAB.CHEW (FP) PO PRN (18:08)
[2017-01-05] MEDS ORDERED: ROSUVASTATIN CA 10 MG TABLET (FP) ONE (21:20)
[2017-01-05] MEDS: ROSUVASTATIN CA 20 MG TABLET (FP) PO SCH (21:39)
[2017-01-06] MEDS: ALBUTEROL SO4 2.5/IPRATROPIUM 0.5 INH SOL 3 ML VIAL.NEB. NEB SCH ×3 (00:33→11:22)
[2017-01-06] MEDS: methylPREDNISolone NA SUCC 40 MG/1 ML VIAL IVPB SCH ×2 (01:52→10:10)
[2017-01-06] MEDS: guaiFENesin/CODEINE 10 ML UNIT-DOSE CUPS PO PRN (01:52)
[2017-01-06] MEDS: LEVOTHYROXINE NA 75 MCG TABLET (FP) PO SCH (06:11)
[2017-01-06] MEDS: ENOXAPARIN NA (PORCINE) 40 MG/0.4 ML DISP.SYRIN SQ SCH (10:09)
[2017-01-06] MEDS: CLOPIDOGREL BISULFATE 75 MG TABLET (FP) PO SCH (10:09)
[2017-01-06] MEDS: PANTOPRAZOLE 40 MG TABLET (FP) PO SCH (10:09)
[2017-01-06] MEDS: LISINOPRIL 5 MG TABLET (FP) PO SCH (10:09)
[2017-01-06] MEDS: ASPIRIN COATED 81 MG TABLET.EC PO SCH (10:09)
[2017-01-06 10:47] VITALS: BP 98/43; PULSE 70; TEMP 98.4
--- NOTE | 2017-01-06 12:18 | PN ---
Progress Note (short form) - Note Progress Note: Overall feels better. Still with some residual cough. Intake & Output 01/03/17 01/04/17 01/05/17 01/06/17 23:59 23:59 23:59 23:59 Intake Total 1140 900 950 550 Output Total 1 Balance 1140 900 950 549 Last Vital Signs Temp Pulse Resp BP Pulse Ox 98.4 F 70 20 98/43 97 01/06/17 10:00 01/06/17 10:00 01/06/17 10:00 01/06/17 10:00 01/05/17 21:00 Active Medications Acetaminophen (Tylenol -) 650 mg PO Q4H PRN PRN Reason: FEVER OR PAIN Albuterol/Ipratropium (Duoneb -) 1 amp NEB QIDR [facility] Last Admin: 01/06/17 11:22 Dose: 1 amp Aspirin (Ecotrin -) 81 mg PO BID [facility] Last Admin: 01/06/17 10:09 Dose: 81 mg Clopidogrel Bisulfate (Plavix -) 75 mg PO DAILY [facility] Last Admin: 01/06/17 10:09 Dose: 75 mg Enoxaparin Sodium (Lovenox -) 40 mg SQ DAILY [facility] Last Admin: 01/06/17 10:09 Dose: 40 mg Guaifenesin/Codeine Phosphate (Robitussin Ac -) 10 ml PO Q8H PRN PRN Reason: COUGH Last Admin: 01/06/17 01:52 Dose: 10 ml Levothyroxine Sodium (Synthroid -) 75 mcg PO DAILY@0700 [facility] Last Admin: 01/06/17 06:11 Dose: 75 mcg Lisinopril (Prinivil) 2.5 mg PO DAILY [facility] Last Admin: 01/06/17 10:09 Dose: Not Given Methylprednisolone Sodium Succinate (Solu-Medrol -) 40 mg IVPB Q8H-IV [facility] Last Admin: 01/06/17 10:10 Dose: 40 mg Pantoprazole Sodium (Protonix -) 40 mg PO DAILY [facility] Last Admin: 01/06/17 10:09 Dose: 40 mg Rosuvastatin Calcium (Crestor -) 40 mg PO HS [facility] Last Admin: 01/05/17 21:39 Dose: 40 mg Simethicone (Mylicon -) 80 mg PO Q8H PRN PRN Reason: HEARTBURN Last Admin: 01/05/17 18:08 Dose: 80 mg Constitutional: Yes: Well Nourished, NAD Eyes: Yes: WNL HENT: Yes: WNL Neck: Yes: Supple, Other (- STRIDOR) Cardiovascular: Yes: Regular Rate and Rhythm, S1, S2 Respiratory: Yes: No Wheezes, scattered rhonchi Gastrointestinal: Yes: Normal Bowel Sounds, Soft Extremities: Yes: WNL Edema: No Labs: Assessment/Plan Problem List - Problems (1) Cough Code(s): R05 - COUGH (2) Failure of outpatient treatment Code(s): Z78.9 - OTHER SPECIFIED HEALTH STATUS (3) Wheezing Code(s): R06.2 - WHEEZING (4) Bronchitis Code(s): J40 - BRONCHITIS, NOT SPECIFIED ACUTE OR CHRONIC (5) CAD (coronary artery disease) Code(s): I25.10 - ATHSCL HEART DISEASE OF [place] CORONARY ARTERY W/O ANG PCTRS Qualifiers: Coronary Disease-Associated Artery/Lesion type: [place] artery [place] vs. transplanted heart: [place] heart Associated angina: without angina Qualified Code(s): I25.10 - Atherosclerotic heart disease of [place] coronary artery without angina pectoris (6) COPD exacerbation Code(s): J44.1 - CHRONIC OBSTRUCTIVE PULMONARY DISEASE W (ACUTE) EXACERBATION (7) History of percutaneous angioplasty Code(s): Z98.61 - CORONARY ANGIOPLASTY STATUS (8) Hypercholesterolemia Code(s): E78.0 - PURE HYPERCHOLESTEROLEMIA * DO NOT USE * (9) Hypertension Code(s): I10 - ESSENTIAL (PRIMARY) HYPERTENSION Qualifiers: Hypertension type: essential hypertension Qualified Code(s): I10 - Essential (primary) hypertension (10) Hypothyroid Code(s): E03.9 - HYPOTHYROIDISM, UNSPECIFIED Assessment/Plan Prednisone BD TX O2 as needed Will need baseline PFTs once stable after discharge (has not had before) Follow up with her ENT surgeon to further assess her vocal cord anatomy and function No smoking encouraged D/C planning Dr Lerner Problem List - Problems (1) Cough Code(s): R05 - COUGH (2) Failure of outpatient treatment Code(s): Z78.9 - OTHER SPECIFIED HEALTH STATUS (3) Wheezing Code(s): R06.2 - WHEEZING (4) Bronchitis Code(s): J40 - BRONCHITIS, NOT SPECIFIED ACUTE OR CHRONIC (5) CAD (coronary artery disease) Code(s): I25.10 - ATHSCL HEART DISEASE OF [place] CORONARY ARTERY W/O ANG PCTRS Qualifiers: Coronary Disease-Associated Artery/Lesion type: [place] artery [place] vs. transplanted heart: [place] heart Associated angina: without angina Qualified Code(s): I25.10 - Atherosclerotic heart disease of [place] coronary artery without angina pectoris (6) COPD exacerbation Code(s): J44.1 - CHRONIC OBSTRUCTIVE PULMONARY DISEASE W (ACUTE) EXACERBATION (7) History of percutaneous angioplasty Code(s): Z98.61 - CORONARY ANGIOPLASTY STATUS (8) Hypercholesterolemia Code(s): E78.0 - PURE HYPERCHOLESTEROLEMIA * DO NOT USE * (9) Hypertension Code(s): I10 - ESSENTIAL (PRIMARY) HYPERTENSION Qualifiers: Hypertension type: essential hypertension Qualified Code(s): I10 - Essential (primary) hypertension (10) Hypothyroid Code(s): E03.9 - HYPOTHYROIDISM, UNSPECIFIED
--- NOTE | 2017-01-06 12:51 | DS ---
Physical Examination Vital Signs: Vital Signs Temperature 98.4 F 01/06/17 10:00 Pulse Rate 70 01/06/17 10:00 Respiratory Rate 20 01/06/17 10:00 Blood Pressure 98/43 01/06/17 10:00 O2 Sat by Pulse Oximetry (%) 93 L 01/06/17 09:00 Constitutional: Yes: No Distress, Calm Cardiovascular: Yes: Regular Rate and Rhythm Respiratory: Yes: Rhonchi (ooccasional) Gastrointestinal: Yes: Normal Bowel Sounds, Soft. No: Distention, Tenderness Edema: No Labs: CBC, BMP 01/03/17 06:10 01/03/17 06:10 Discharge Summary Reason For Visit: WHEEZING/COUGH Current Active Problems Cough (Acute) Failure of outpatient treatment (Acute) Wheezing (Acute) Hospital Course: patient was admitted for COPD exacerbation. She was started on Solu-Medrol and intravenous antibiotics. She was seen by business continuity analyst who discontinued antibiotics and tapered her Solu- Medrol She has improved markedly after receiving Solu-Medrol Also receives nebulizer treatments Ambulating well without any difficulty Patient is stable for discharge home, she will be on tapering prednisone, Robitussin with codeine also sent to the pharmacyHCS verified Condition: Improved - Instructions Diet, Activity, Other Instructions: Low salt diet Activity as tolerated No smoking Follow up with Private ENT-Surgeon PFT's as out patient Referrals: Matheus Lerner MD [Staff Physician] - 1 Week (Pulmonary Function Studies as out patient.) Luis Velasquez MD [Primary Care Provider] - Disposition: HOME - Home Medications Comprehensive Discharge Medication List: Ambulatory Orders Aspirin [Aspir 81] 81 mg PO BID 10/18/11 Rosuvastatin [Crestor -] 40 mg PO HS 10/18/11 Levothyroxine [Synthroid -] 75 mcg PO DAILY 12/13/11 Lisinopril [Prinivil -] 2.5 mg PO DAILY 06/02/15 Pantoprazole Sodium [Protonix -] 40 mg PO DAILY 06/02/15 Clopidogrel Bisulfate [Plavix -] 75 mg PO DAILY #0 06/03/15
== END 2017-01-06 13:36 | disposition home or self-care (01) | DRG 192 ==
LOC: JER 05:58 → JERBED 11:02 → J8W 14:35
PROVIDERS: ADMIT Internal Medicine; ATTEND Internal Medicine
DX: J44.1 Chronic obstructive pulmonary disease with (acute) exacerbation (principal); I10 Essential (primary) hypertension; I25.10 Atherosclerotic heart disease of native coronary artery without angina pectoris; E78.5 Hyperlipidemia, unspecified; I25.2 Old myocardial infarction; Z87.891 Personal history of nicotine dependence; E03.9 Hypothyroidism, unspecified; K21.9 Gastro-esophageal reflux disease without esophagitis; Z88.0 Allergy status to penicillin
CPT/HCPCS: 36415; 71020-TC; 80053; 82550; 83735; 83880; 84443; 84484; 85025; 85610; 93005; 93010; 94010; 94640; 99283-25

== ENCOUNTER 2018-11-21 10:02 | Day surgery (SDC) | payer OTHER, MEDICARE ==
[2018-11-21 12:11] VITALS: BMI 26.2
[2018-11-21 12:37] VITALS: TEMP 97.4
[2018-11-21] MEDS ORDERED: SEVOFLURANE 250 ML BTL ONE (12:42)
[2018-11-21 13:00] VITALS: PULSE 58
[2018-11-21 13:24] VITALS: BP 113/64
--- NOTE | 2018-11-24 14:42 | PATH ---
Surgical Pathology Report Patient Name: SAGRARIO PRIETO [facility]. Rec. #: [id number] /Age/Gender: 1945 (Age: 73) / F Account: [id number] Location: [facility]-ENDOSCOPY Taken: 11/21/2018 Received: 11/22/2018 Reported: 11/24/2018 Physicians: Hang Fam M.D. 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 Comment: Case seen in intradepartmental review with consensus on diagnosis. Prior materials are noted. Findings discussed with Dr. Fam. Electronically Signed Venessa Estrada M.D. Gross Description Received in formalin, labeled "biopsy EG junction" are 3 louie, irregular portions of soft tissue ranging from 0.3-0.5 cm. in greatest dimension. The specimens are submitted in toto in one cassette. 11/22/2018 saudi11/22/2018
== END 2018-11-21 13:24 | disposition home or self-care (01) ==
LOC: JASU-ENDO 10:02
PROVIDERS: ATTEND Internal Medicine Gastroenterology
PROC: 0DB58ZX Excision of Esophagus, Via Natural or Artificial Opening Endoscopic, Diagnostic (ICD-10-PCS; principal; 2018-11-21 11:15)
DX: K22.70 Barrett's esophagus without dysplasia (principal)
CPT/HCPCS: 88305-TC

== ENCOUNTER 2020-06-25 04:19 | Day surgery (SDC) | payer OTHER, MEDICARE ==
[2020-06-24 12:41] VITALS: BMI 27.1
[2020-06-25] MEDS ORDERED: ONDANSETRON 4 MG/2 ML VIAL IVPUSH PRN (09:39)
[2020-06-25] MEDS ORDERED: PROMETHAZINE HCL 25 MG/1 ML VIAL IVPB PRN (09:39)
[2020-06-25] MEDS ORDERED: LACTATED RINGERS SOLUTION 1,000 ML IV SCH (09:45)
[2020-06-25] MEDS ORDERED: MIDAZOLAM HCL 2 MG/2 ML SINGLE DOSE VIAL ONE (09:52)
[2020-06-25] MEDS ORDERED: PROPOFOL 20 ML ONE (09:52)
[2020-06-25] MEDS ORDERED: LIDOCAINE HCL/PF 2% SDV 5ML VIAL ONE (09:53)
[2020-06-25] MEDS ORDERED: BUPIVACAINE HCL/PF 0.25% (2.5MG/ML) 10 ML VIAL ONE (10:07)
[2020-06-25] MEDS ORDERED: LIDOCAINE HCL 1%, 10 MG/ML (20ML VIAL) ONE (10:07)
[2020-06-25] MEDS ORDERED: CLINDAMYCIN PHOSPHATE 600 MG/4 ML VIAL ONE ×3 (10:16→10:20)
[2020-06-25] MEDS ORDERED: CLINDAMYCIN PHOSPHATE 600 MG/4 ML VIAL IVPB ONE (10:22)
[2020-06-25] MEDS ORDERED: BUPIVACAINE HCL/PF 0.5% (5 MG/ML) 30 ML VIAL IJ ONE (10:29)
[2020-06-25] MEDS ORDERED: LIDOCAINE HCL 1%, 10 MG/ML (20ML VIAL) PNB ONE (10:31)
[2020-06-25 12:00] VITALS: PULSE 51; TEMP 97.8
[2020-06-25 12:28] VITALS: BP 100/61
== END 2020-06-25 12:25 | disposition home or self-care (01) ==
LOC: JASU-SURG 04:19
PROVIDERS: ATTEND Orthopaedic Surgery
PROC: 0LB70ZZ Excision of Right Hand Tendon, Open Approach (ICD-10-PCS; principal; 2020-06-25 09:30)
DX: M67.441 Ganglion, right hand (principal)
CPT/HCPCS: 94760

== ENCOUNTER 2021-02-02 05:04 | Day surgery (SDC) | payer OTHER, MEDICARE ==
[2021-01-16 08:58] VITALS: BMI 25.7
[2021-02-02] MEDS ORDERED: LIDOCAINE 1%/EPI 1:100000 (20 ML MULTI DOSE VIAL) ONE (11:11)
[2021-02-02] MEDS ORDERED: BUPIVACAINE HCL/PF 0.5% (5MG/ML) 10 ML VIAL ONE (11:28)
[2021-02-02] MEDS ORDERED: MIDAZOLAM HCL 2 MG/2 ML SINGLE DOSE VIAL ONE (11:37)
[2021-02-02] MEDS ORDERED: PROPOFOL 20 ML ONE (11:37)
[2021-02-02] MEDS ORDERED: CLINDAMYCIN 600 MG PREMIX BAG IVPB ONE (12:01)
[2021-02-02] MEDS ORDERED: BUPIVACAINE HCL/PF 0.5% (5 MG/ML) 30 ML VIAL IJ ONE (12:24)
[2021-02-02] MEDS ORDERED: LIDOCAINE 1%/EPI 1:100000 (20 ML MULTI DOSE VIAL) IJ ONE (12:24)
[2021-02-02] MEDS ORDERED: ONDANSETRON 4 MG/2 ML VIAL IVPUSH PRN (15:03)
[2021-02-02] MEDS ORDERED: oxyCODONE HCL 5 MG TABLET PO PRN (15:03)
[2021-02-02] MEDS ORDERED: LACTATED RINGERS SOLUTION 1,000 ML IV SCH (15:15)
[2021-02-02 16:21] VITALS: TEMP 97.2
[2021-02-02 16:27] VITALS: BP 100/60; PULSE 64
== END 2021-02-02 13:55 | disposition home or self-care (01) ==
LOC: JASU-SURG 05:04
PROVIDERS: ATTEND Podiatrist Foot Surgery
PROC: 0SRP0JZ Replacement of Right Toe Phalangeal Joint with Synthetic Substitute, Open Approach (ICD-10-PCS; principal; 2021-02-02 11:30)
DX: M20.41 Other hammer toe(s) (acquired), right foot (principal)
CPT/HCPCS: 73630-TC-RT-FY; 88304-TC; 88311-TC

== ENCOUNTER 2024-01-07 19:33 | Inpatient (IN) | payer OTHER, MEDICARE ==
[2024-01-07 19:55] VITALS: BMI 24.7
[2024-01-07] MEDS ORDERED: ACETAMINOPHEN 1000 MG/100 ML BAG IVPB ONE (20:09)
[2024-01-07] MEDS ORDERED: SODIUM CHLORIDE 1,000 ML IV STA (20:10)
[2024-01-07] MEDS ORDERED: ACETAMINOPHEN 325 MG TABLET (FP) ONE (20:59)
[2024-01-07] MEDS: ACETAMINOPHEN 500 MG TABLET (FP) PO ONE (21:09)
[2024-01-07 22:57] LABS: POTASSIUM 5.6 mmol/L (3.5-5.1)
[2024-01-07 23:00] LABS: ALBUMIN 3.7 g/dl (3.4-5.0); BLOOD UREA NITROGEN 19.4 mg/dL (7-18)
[2024-01-07 23:03] LABS: CREATININE 1.6 mg/dL (0.55-1.3)
[2024-01-07 23:04] LABS: BILIRUBIN,TOTAL 0.7 mg/dL (0.2-1); TOT PROT 6.7 g/dl (6.4-8.2)
[2024-01-08] MEDS ORDERED: KETOROLAC TROMETHAMINE 15 MG/ML VIAL ONE (02:10)
[2024-01-08] MEDS: KETOROLAC TROMETHAMINE 15 MG/ML VIAL IVPUSH ONE (02:16)
[2024-01-08] MEDS ORDERED: ACETAMINOPHEN 1000 MG/100 ML BAG IVPB PRN ×2 (10:32→11:23)
[2024-01-08] MEDS ORDERED: traMADol HCL 50 MG TABLET ONE ×2 (14:37→20:06)
[2024-01-08] MEDS: LEVOTHYROXINE NA 88 MCG TABLET (FP) PO SCH (14:42)
[2024-01-08] MEDS: traMADol HCL 50 MG TABLET PO PRN (14:42)
[2024-01-08] MEDS: ROSUVASTATIN CA 20 MG TABLET PO SCH (21:44)
[2024-01-08] MEDS: ASPIRIN 81 MG CHEWABLE TABLETS PO SCH (21:44)
[2024-01-08] MEDS: metoPROLOL SUCCINATE 25 MG TAB.SR.24H (FP) PO SCH (21:44)
[2024-01-09] MEDS: LEVOTHYROXINE NA 75 MCG TABLET (FP) PO ONE (06:40)
[2024-01-09] MEDS: CLOPIDOGREL BISULFATE 75 MG TABLET (FP) PO SCH (09:21)
[2024-01-09 09:31] LABS: BASO % 0.6 % (0-2.0); EOS % 4.8 % (0-4.5); HEMATOCRIT 29.7 % (32.4-45.2); HEMOGLOBIN 10.3 GM/dL (10.7-15.3); LYMPH % 9.1 % (8-40); MCH 32.5 pg (25.7-33.7); MCHC 34.6 g/dl (32.0-36.0); MONO % 4.5 % (3.8-10.2); PLATELET COUNT 193 10^3/uL (134-434); RBC 3.16 M/mm3 (3.60-5.2); RDW 14.4 % (11.6-15.6); WHITE BLOOD COUNT 7.8 K/mm3 (4.0-10.0)
[2024-01-09 09:46] LABS: POTASSIUM 4.5 mmol/L (3.5-5.1)
[2024-01-09 09:55] LABS: BLOOD UREA NITROGEN 21.3 mg/dL (7-18); CALCIUM 8.3 mg/dL (8.5-10.1)
[2024-01-09 09:56] LABS: CREATININE 1.3 mg/dL (0.55-1.3)
[2024-01-09 09:57] LABS: BILIRUBIN,TOTAL 0.7 mg/dL (0.2-1); TOT PROT 5.7 g/dl (6.4-8.2)
[2024-01-09] MEDS ORDERED: ENOXAPARIN NA (PORCINE) 30 MG/0.3 ML DISP.SYRIN SQ SCH (10:00)
[2024-01-09 15:20] VITALS: BP 111/62; PULSE 73; RESP 20; TEMP 98
== END 2024-01-09 17:05 | disposition home or self-care (01) | DRG 536 ==
LOC: JER 19:33 → JERBED 01-08 09:29 → J8W 01-08 20:48
PROVIDERS: ADMIT Internal Medicine; ATTEND Internal Medicine
DX: S32.511A Fracture of superior rim of right pubis, initial encounter for closed fracture (principal); I11.0 Hypertensive heart disease with heart failure; I50.9 Heart failure, unspecified; J44.9 Chronic obstructive pulmonary disease, unspecified; I25.10 Atherosclerotic heart disease of native coronary artery without angina pectoris; W01.0XXA Fall on same level from slipping, tripping and stumbling without subsequent striking against object, initial encounter; Y93.89 Activity, other specified; Y92.89 Other specified places as the place of occurrence of the external cause; Y99.8 Other external cause status; M16.11 Unilateral primary osteoarthritis, right hip; E03.9 Hypothyroidism, unspecified
CPT/HCPCS: 36415; 72192-TC; 73070-TC-RT-FY; 73502-TC-RT-FY; 80053; 85025; 97116-GP; 97161-GP; 99285-25